=== PATIENT | male | born 1985 | race Caucasian/White ===

== ENCOUNTER 2016-05-18 12:00 | Emergency (ER) | payer OTHER | END 2016-05-18 12:50 | disposition home or self-care (01) | LOC: ER 12:00 | DX: J40 Bronchitis, not specified as acute or chronic (principal); R50.9 Fever, unspecified; R05 Cough; J02.9 Acute pharyngitis, unspecified; F17.210 Nicotine dependence, cigarettes, uncomplicated | CPT/HCPCS: 87400; 99283 ==

== ENCOUNTER 2016-08-27 21:11 | Emergency (ER) | payer OTHER | END 2016-08-27 23:15 | disposition home or self-care (01) | LOC: ER 21:11 | DX: S02.609A Fracture of mandible, unspecified, initial encounter for closed fracture (principal); R68.84 Jaw pain; Y04.0XXA Assault by unarmed brawl or fight, initial encounter; Y92.009 Unspecified place in unspecified non-institutional (private) residence as the place of occurrence of the external cause; F17.210 Nicotine dependence, cigarettes, uncomplicated | CPT/HCPCS: 70486; 96372; 99283-25 ==